=== PATIENT | male | born 2000 | race Caucasian/White ===

== ENCOUNTER 2021-10-03 19:55 | Inpatient (IN) ==
[2021-10-03 20:37] LABS: Basophils # (auto) 0.02 K/uL (0-0.2); Basophils % (auto) 0.3 %; Eosinophils % (auto) 1.7 %; Hematocrit (blood only) 43.9 % (42-52); Hemoglobin 15.6 g/dL (14.0-18.0); Immature Granulocytes # (auto) 0.01 K/uL (0.00-0.02); Immature Granulocytes % (auto) 0.2 %; Lymphocytes # (auto) 2.29 K/uL (1.2-3.4); Lymphocytes % (auto) 38.6 %; Mean Corpuscular Hemoglobin 30.8 pg (25-34); Mean Corpuscular Hgb Conc 35.5 g/dL (32-36); Mean Corpuscular Volume 86.8 fL (80-100); Mean Platelet Volume 10.2 fL (7.4-10.4); Monocytes # (auto) 0.42 K/uL (0.11-0.59); Monocytes % (auto) 7.1 %; Neutrophils % (auto) 52.1 %; Platelet Count 234 K/uL (130-400); RDW Coefficient of Variation 12.1 % (11.5-14.5); RDW Standard Deviation 38.5 fL (36.4-46.3); Red Blood Count 5.06 M/uL (4.7-6.1); White Blood Count 5.94 K/uL (4.8-10.8)
[2021-10-03 20:49] LABS: Appearance Urine Clear (Clear); Bilirubin Urine Negative (Negative); Blood Urine Negative (Negative); Color Urine Yellow; Glucose Urine UA Negative (Negative); Ketones Urine Trace (Negative); Leukocyte Esterase Urine Negative (Negative); Nitrite Urine Negative (Negative); Protein Urine Negative (Negative); Specific Gravity Urine 1.018 (1.000-1.030); Urobilinogen Urine Negative (Negative)
[2021-10-03] MEDS ORDERED: SODIUM CHLORIDE 0.9% 1000ML 1,000 ML IV ONE ×2 (20:49)
[2021-10-03] MEDS ORDERED: LORazepam 2 MG/4 ML VIAL IV STA (20:49)
[2021-10-03] MEDS ORDERED: MAGNESIUM SULFATE / D5W 1 GM/100 ML BAG IV STA (20:50)
--- NOTE | 2021-10-03 20:53 | Emergency Department Note ---
Impression & Plan Bupropion overdose, Anticholinergic drug overdose, Prolonged QT interval, Alcohol intoxication, Depression ED Provider Note Name: NOLBERTO GUERRA Age: 21 Sex: M Arrives Via: Walk-In Informant: Patient, Girlfriend ED Provider: Dontrell Quijano MD Chief Complaint: Overdose Impression: As per impressions above Medical Decision Makin-year-old male with a history of depression and worsening depressive recently who admits he was feeling quite bad this afternoon and since drinking beer did not make him feel better he attempted snorting his bupropion. He admits this led to him snorting roughly 15 to 20 tablets over a 3-hour time. Initially had no symptoms but then started becoming tremulous and slightly dizzy. After discussion with his significant other he came to the ER for further evaluation. On arrival he was tachycardic and appeared to be in an anticholinergic state. He was brought back to room B 10 where he was immediately evaluated by me. EKG reveals a prolonged QTC, significant tachycardia and ST depressions laterally. His examination is consistent with an anticholinergic state with tremors and nystagmus. Given these findings he was immediately ordered fluids, IV magnesium, IV Ativan. He did seem to improve somewhat after this though still somewhat tachycardic. Labs are remarkable for mildly intoxicated patient and positive amphetamines/MDMA in the UA which may just be related to his bupropion overdose. I did discuss the case with poison control who agrees with the work-up that had been initiated given to the patient. I discussed the case with Dr. Roberts of the [facility] hospitalist group for further management. Patient is comfortable with this plan as is his significant other. I will note that throughout the patient's stay and on evaluations he continues to maintain that this was not an attempt to harm himself but rather to get high as he was not feeling good. He repeatedly says this was not a suicide attempt and his significant other at bedside believes this was not an attempt either. Prior Medical Record and Triage/Nursing Notes reviewed by Me Additional history obtained from significant other Differentials:Overdose, toxicologic, infection, hypoglycemia, electrolyte abnormalities, cardiac sources, intracerebral event, neurologic, trauma, as well as other pathologies. Vital Signs: reviewed and remarkable for tachycardia Interventions: Normal saline 2 L IV, magnesium 1 g IV, 2 mg Ativan IV Labs:Reviewed and remarkable for no significant abnormalities EKG:Per My Interpretation: Indication Overdose: sinus Tachy 147 bpm, qtc 551. No Ectopy. No Ischemia. No previous EKG for evaluation Cardiac/Tele Monitoring: Cardiac Monitoring: An Order was placed for continuous cardiac monitoring. The monitor shows a rate of 140 with a sinus tachy rhythm. Consults:Dr. Roberts [facility] hospitalist Plan: Disposition:Hospitalization. Condition: Good History of Present Illness:31-year-old male arrives for evaluation of an overdose. Patient notes that he has been depressed for quite some time due to the of his grandmother who raised him over the fall. He also notes that school has been difficult and then the holidays made even worse. He had a meeting with his counselor today and he said that he just was feeling very d epressed after this. He wanted to feel better so he drank some beer. As the beer did not make him feel better he took some bupropion which also did not make him feel better. He looked up online how snorting bupropion can give you a high and thus he attempted to do this. Over the period of 3 hours between 1 PM and 4 PM he snorted roughly 15 to 20 tablets of bupropion 100 mg SR tablets. He stat es he initially felt all right but has now begun to feel lightheaded mildly dizzy and shaky. Girlfriend brought him to ER for evaluation. He denies any current nausea, vomiting, chest pain, shortness of breath, syncope, headache, neurologic deficits, loss of bowel or bladder control, focal weakness nor other symptoms. He denies any falls, trauma, injuries. He is adamant that this was not a suicide attempt but rather an attempt to make himself feel better. He denies any previous suicide attempts nor previous hospitalizations for depression/psychiatric illness. He denies any other medications taken with this. He denies any further alcohol since this afternoon. Patient states that he is on bupropion as an outpatient but no other medications. Patient does admit extensive anxiety and depression history in his family. He is not aware of any suicide attempts in his family. ROS: See above HPI for pertinent positives & negatives. A total of 10 systems reviewed and were otherwise negative. Past Medical History:Anxiety/depression Past Surgical History:Nasal septal surgery Family History:Grandmother had pancreatic cancer and liver failure. He believes there is coronary artery disease within the family as well. Social History:Patient is a [employer] student. He has a major in chemical engineering. He denies tobacco nor drug use. He admits occasional alcohol use and increased use throughout the holiday but does not regularly get intoxicated. Home Medications:Bupropion Allergies:No known drug allergies Vitals:Blood Pressure: 121/70, Pulse 143, RR 16, T 36.6C, O2 99% on RA Physical Exam: GENERAL: Patient is distant and tremulous appearing and in minimal distress. EYES: No scleral icterus, unremarkable pupils. ENT: Mucous membranes moist, no nasal congestion. NECK: No masses appreciated, nomeningismus, trachea is midline. RESPIRATORY: No dyspnea. Clear to auscultation and equal bilaterally. No wheeze, no rhonchi. CARDIOVASCULAR: Tachycardic.No murmurs, rubs, gallops appreciated. GASTROINTESTINAL: Abdomen soft, non-tender, no peritonitis.Bowel sounds positive.No masses appreciated. BACK: No midline tenderness, no CVA tenderness EXTREMITIES: Normal motion all extremities, no cyanosis, no edema. NEUROLOGIC: Horizontal nystagmus, tremulous. Awake, oriented. No acute motor or sensory deficits, no focal weakness, cranial nerves grossly intact. SKIN: No rash, no jaundice, no diaphoresis. PSYCH: Sad/depressed, adamant he is not suicidal GCS: 15 ED Course: Times/Reassessments: Patient appears much calmer and in no distress on repeat evaluations following above treatment. He is somewhat tachycardic though is not having any symptoms from this at this time. Critical Care: I have personally spent 35 minutes of critical care time in the direct management of this patient. Acute anticholinergic crisis following large overdose of bupropion requiring resuscitation with fluids, IV magnesium, IV Ativan. This was a life/limb threatening event. This 35 minutes is in excess of all separately billable procedures. Dontrell Quijano MD Past Med/Surg History Medical History (Updated 10/03/21 @ 23:22 by Dontrell Quijano MD) No pertinent past medical history Family History Other No pertinent family history Social History Smoking Status: Never smoker Feels Safe at Home: Yes Allergies Allergies Allergy/AdvReac Type Severity Reaction Status Date / Time No Known Allergies Allergy Verified 10/03/21 21:24 Home Meds Home Medications Medication Instructions Recorded Confirmed bupropion HCl 150 mg tablet,12 hr 150 mg PO .OD 10/03/21 10/03/21 sustained-release bupropion HCl 300 mg 24 hr tablet, 300 mg PO QAM 10/03/21 10/03/21 extended release Results & Data (ED) Vital Signs Vital Signs - 24 hr 10/03/21 19:59 10/03/21 21:07 10/03/21 21:09 Temperature 36.6 C 36.6 C Temperature Source Temporal Artery Scan Oral Pulse Rate 143 H 147 H Pulse Rate [Apical] 147 H Pulse Rhythm Regular Pulse Rhythm [Apical] Regular Pulse Strength [Apical] Normal Respiratory Rate 16 22 Respiratory Effort / Characteristics Non-Labored Spontaneous Respiratory Depth Normal Normal Respiratory Pattern Regular Tachypnea Blood Pressure 121/70 Blood Pressure [Right Arm] 133/76 Blood Pressure Mean 87 Blood Pressure Mean [Right Arm] 95 Blood Pressure Position [Right Arm] Semi-fowlers Pulse Oximetry 99 99 100 Oxygen Delivery Method Room Air Room Air Room Air Oxygen Flow Rate 0 Sepsis Recent Fever Within 48 Hours No Sepsis New/Unexplained Change in Mental Status No Sepsis Action Taken by Nursing No Action Required Laboratory Data Result diagrams: 10/03/21 20:23 10/03/21 20:23 Lab Results 10/03/21 10/03/21 10/03/21 Range/Units 20:23 20:23 20:23 WBC 5.94 (4.8-10.8) K/uL RBC 5.06 (4.7-6.1) M/uL Hgb 15.6 (14.0-18.0) g/dL Hct 43.9 (42-52) % MCV 86.8 (80-100) fL MCH 30.8 (25-34) pg MCHC 35.5 (32-36) g/dL RDW Std Deviation 38.5 (36.4-46.3) fL RDW Coeff of [place] 12.1 (11.5-14.5) % Plt Count 234 (130-400) K/uL MPV 10.2 (7.4-10.4) fL Immature Gran % (Auto) 0.2 % Neut % (Auto) 52.1 % Lymph % (Auto) 38.6 % [place] % (Auto) 7.1 % Eos % (Auto) 1.7 % Baso % (Auto) 0.3 % Neut # (Auto) 3.10 (1.4-6.5) K/uL Lymph # (Auto) 2.29 (1.2-3.4) K/uL [place] # (Auto) 0.42 (0.11-0.59) K/uL Eos # (Auto) 0.10 (0-0.5) K/uL Baso # (Auto) 0.02 (0-0.2) K/uL Immature Gran # (Auto) 0.01 (0.00-0.02) K/uL Sodium 142 (136-145) mmol/L Potassium 3.2 L (3.5-5.1) mmol/L Chloride 111 H (98-107) mmol/L Carbon Dioxide 24 (21-32) mmol/L Anion Gap 7.0 (3-11) BUN 10 (7-18) mg/dl Creatinine 1.01 (0.6-1.4) mg/dl Est Cr Clr Drug Dosing 111.9 ml/min Est GFR ( Amer) 122.7 ml/min Est GFR (Non-Af Amer) 105.8 ml/min BUN/Creatinine Ratio 10.0 (10-20) Glucose 99 (70-99) mg/dl Calcium 9.1 (8.5-10.1) mg/dl Magnesium (1.8-2.4) mg/dl Total Bilirubin 0.2 (0.2-1) mg/dl AST 20 (15-37) U/L ALT 30 (12-78) Alkaline Phosphatase 68 (45-117) U/L Total Protein 8.3 H (6.4-8.2) gm/dl Albumin 4.5 (3.4-5.0) gm/dl Globulin 3.8 (2.5-4.0) gm/dl Albumin/Globulin Ratio 1.2 (0.9-2) TSH 2.680 (0.300-4.500) uIu/ml Urine Color Urine Appearance (Clear) Urine pH (4.5-7.5) Ur Specific [place] (1.000-1.030) Urine Protein (Negative) Urine Glucose (UA) (Negative) Urine Ketones (Negative) Urine Blood (Negative) Urine Nitrite (Negative) Urine Bilirubin (Negative) Urine Urobilinogen (Negative) Ur Leukocyte Esterase (Negative) Salicylates < 1.7 L (2.8-20) mg/dl Urine Opiates Screen (Neg) Ur Methadone, Qual (Neg) Acetaminophen < 2 L (10-30) ug/ml Urine Barbiturates (Neg) Ur Phencyclidine (PCP) (Neg) U Amphetamin/Meth Scrn (Neg) MDMA (Ecstasy) Screen (Neg) U Benzodiazepines Scrn (Neg) Ur Cocaine Metabolite (Neg) U Marijuana (THC) Screen (Neg) Ethyl Alcohol mg/dL (0-3) mg/dl SARS-CoV-2, RNA, NAAT (NEGATIVE) 10/03/21 10/03/21 10/03/21 Range/Units 20:23 20:23 21:33 WBC (4.8-10.8) K/uL RBC (4.7-6.1) M/uL Hgb (14.0-18.0) g/dL Hct (42-52) % MCV (80-100) fL MCH (25-34) pg MCHC (32-36) g/dL RDW Std Deviation (36.4-46.3) fL RDW Coeff of [place] (11.5-14.5) % Plt Count (130-400) K/uL MPV (7.4-10.4) fL Immature Gran % (Auto) % Neut % (Auto) % Lymph % (Auto) % [place] % (Auto) % Eos % (Auto) % Baso % (Auto) % Neut # (Auto) (1.4-6.5) K/uL Lymph # (Auto) (1.2-3.4) K/uL [place] # (Auto) (0.11-0.59) K/uL Eos # (Auto) (0-0.5) K/uL Baso # (Auto) (0-0.2) K/uL Immature Gran # (Auto) (0.00-0.02) K/uL Sodium (136-145) mmol/L Potassium (3.5-5.1) mmol/L Chloride (98-107) mmol/L Carbon Dioxide (21-32) mmol/L Anion Gap (3-11) BUN (7-18) mg/dl Creatinine (0.6-1.4) mg/dl Est Cr Clr Drug Dosing ml/min Est GFR ( Amer) ml/min Est GFR (Non-Af Amer) ml/min BUN/Creatinine Ratio (10-20) Glucose (70-99) mg/dl Calcium (8.5-10.1) mg/dl Magnesium 2.0 (1.8-2.4) mg/dl Total Bilirubin (0.2-1) mg/dl AST (15-37) U/L ALT (12-78) Alkaline Phosphatase (45-117) U/L Total Protein (6.4-8.2) gm/dl Albumin (3.4-5.0) gm/dl Globulin (2.5-4.0) gm/dl Albumin/Globulin Ratio (0.9-2) TSH (0.300-4.500) uIu/ml Urine Color Urine Appearance (Clear) Urine pH (4.5-7.5) Ur Specific [place] (1.000-1.030) Urine Protein (Negative) Urine Glucose (UA) (Negative) Urine Ketones (Negative) Urine Blood (Negative) Urine Nitrite (Negative) Urine Bilirubin (Negative) Urine Urobilinogen (Negative) Ur Leukocyte Esterase (Negative) Salicylates (2.8-20) mg/dl Urine Opiates Screen (Neg) Ur Methadone, Qual (Neg) Acetaminophen (10-30) ug/ml Urine Barbiturates (Neg) Ur Phencyclidine (PCP) (Neg) U Amphetamin/Meth Scrn (Neg) MDMA (Ecstasy) Screen (Neg) U Benzodiazepines Scrn (Neg) Ur Cocaine Metabolite (Neg) U Marijuana (THC) Screen (Neg) Ethyl Alcohol mg/dL 111.3 H (0-3) mg/dl SARS-CoV-2, RNA, NAAT NEGATIVE (NEGATIVE) 10/03/21 10/03/21 Range/Units Unknown Unknown WBC (4.8-10.8) K/uL RBC (4.7-6.1) M/uL Hgb (14.0-18.0) g/dL Hct (42-52) % MCV (80-100) fL MCH (25-34) pg MCHC (32-36) g/dL RDW Std Deviation (36.4-46.3) fL RDW Coeff of [place] (11.5-14.5) % Plt Count (130-400) K/uL MPV (7.4-10.4) fL Immature Gran % (Auto) % Neut % (Auto) % Lymph % (Auto) % [place] % (Auto) % Eos % (Auto) % Baso % (Auto) % Neut # (Auto) (1.4-6.5) K/uL Lymph # (Auto) (1.2-3.4) K/uL [place] # (Auto) (0.11-0.59) K/uL Eos # (Auto) (0-0.5) K/uL Baso # (Auto) (0-0.2) K/uL Immature Gran # (Auto) (0.00-0.02) K/uL Sodium (136-145) mmol/L Potassium (3.5-5.1) mmol/L Chloride (98-107) mmol/L Carbon Dioxide (21-32) mmol/L Anion Gap (3-11) BUN (7-18) mg/dl Creatinine (0.6-1.4) mg/dl Est Cr Clr Drug Dosing ml/min Est GFR ( Amer) ml/min Est GFR (Non-Af Amer) ml/min BUN/Creatinine Ratio (10-20) Glucose (70-99) mg/dl Calcium (8.5-10.1) mg/dl Magnesium (1.8-2.4) mg/dl Total Bilirubin (0.2-1) mg/dl AST (15-37) U/L ALT (12-78) Alkaline Phosphatase (45-117) U/L Total Protein (6.4-8.2) gm/dl Albumin (3.4-5.0) gm/dl Globulin (2.5-4.0) gm/dl Albumin/Globulin Ratio (0.9-2) TSH (0.300-4.500) uIu/ml Urine Color Yellow Urine Appearance Clear (Clear) Urine pH 5.0 (4.5-7.5) Ur Specific [place] 1.018 (1.000-1.030) Urine Protein Negative (Negative) Urine Glucose (UA) Negative (Negative) Urine Ketones Trace H (Negative) Urine Blood Negative (Negative) Urine Nitrite Negative (Negative) Urine Bilirubin Negative (Negative) Urine Urobilinogen Negative (Negative) Ur Leukocyte Esterase Negative (Negative) Salicylates (2.8-20) mg/dl Urine Opiates Screen Neg (Neg) Ur Methadone, Qual Neg (Neg) Acetaminophen (10-30) ug/ml Urine Barbiturates Neg (Neg) Ur Phencyclidine (PCP) Neg (Neg) U Amphetamin/Meth Scrn Pos H (Neg) MDMA (Ecstasy) Screen Pos H (Neg) U Benzodiazepines Scrn Neg (Neg) Ur Cocaine Metabolite Neg (Neg) U Marijuana (THC) Screen Neg (Neg) Ethyl Alcohol mg/dL (0-3) mg/dl SARS-CoV-2, RNA, NAAT (NEGATIVE) Administered Medications Sodium Chloride (Nss 1000ml) 1,000 mls @ 200 mls/hr IV .Q5H FAUSTO Stop: 10/04/21 08:46 Last Admin: 10/03/21 23:00 Dose: 200 mls/hr Documented by: [id number] Discontinued Medications Sodium Chloride (Nss 1000ml) 1,000 mls @ 999 mls/hr IV .Q1H1M ONE Stop: 10/03/21 21:49 Last Infusion: 10/03/21 23:00 Dose: 0 mls/hr Documented by: [id number] Infusion: 10/03/21 21:38 Dose: 0 mls/hr Documented by: [id number] Admin: 10/03/21 20:56 Dose: 999 mls/hr Documented by: [id number] Sodium Chloride (Nss 1000ml) 1,000 mls @ 999 mls/hr IV .Q1H1M ONE Stop: 10/03/21 21:49 Last Admin: 10/03/21 21:39 Dose: 999 mls/hr Documented by: [id number] Lorazepam (Ativan) 2 mg in 4 mls @ 4 mls/min IV NOW STA Stop: 10/03/21 20:50 Last Admin: 10/03/21 20:58 Dose: 4 mls/min Documented by: [id number] Magnesium Sulfate/Dextrose (Magnesium Sulfate / D5w) 1 gm in 100 mls @ 100 mls/hr IV NOW STA Stop: 10/03/21 21:49 Last Infusion: 10/03/21 22:12 Dose: 0 mls/hr Documented by: [id number] Admin: 10/03/21 21:04 Dose: 100 mls/hr Documented by: [id number] Potassium Chloride (Potassium Chloride Crtab 20 Meq Tabcr) 40 meq PO NOW STA Stop: 10/03/21 22:47 Last Admin: 10/03/21 23:00 Dose: 40 meq Documented by: [id number] Discharge Plan Visit Data Chief Complaint: Overdose (Intentional) Stated Complaint: INTENTIONAL OD OF BUPROPION ED Provider: Dontrell Quijano Discharge Problem: Bupropion overdose, Anticholinergic drug overdose, Prolonged QT interval, Alcohol intoxication, Depression Forms Stand Alone Forms: [facility], Suicide Prevention Resources Prescriptions Prescriptions: No Action bupropion HCl 150 mg Tablet Sustained-Release 12 Hr 150 mg PO .OD RF: 0 bupropion HCl 300 mg Tablet Extended Release 24 Hr 300 mg PO QAM RF: 0 Referrals [facility]: [facility] [Primary Care Provider] -
[2021-10-03 20:57] LABS: Albumin Level 4.5 gm/dl (3.4-5.0); Calcium 9.1 mg/dl (8.5-10.1); Creatinine Clr Calc Pharmacy 111.9 ml/min; Est GFR (African American) 122.7 ml/min; Est GFR (Non-African American) 105.8 ml/min; Potassium 3.2 mmol/L (3.5-5.1)
[2021-10-03 21:06] LABS: Albumin Globulin Ratio 1.2 (0.9-2); Globulin 3.8 gm/dl (2.5-4.0); Thyroid Stimulating Hormone 2.68 uIu/ml (0.300-4.500); Total Protein 8.3 gm/dl (6.4-8.2)
[2021-10-03 21:13] LABS: Acetaminophen < 2 ug/ml (10-30); Salicylate < 1.7 mg/dl (2.8-20)
[2021-10-03 21:45] LABS: Benzodiazepine, Urine Neg (Neg); Cocaine, Urine Neg (Neg); MDMA (Ecstacy), Urine Pos (Neg); Methadone, Urine Neg (Neg); Opiate, Urine Neg (Neg); Phencyclidine, Urine Neg (Neg)
[2021-10-03 22:05] LABS: Bilirubin,Total 0.2 mg/dl (0.2-1)
[2021-10-03 22:14] LABS: Amphetamines+Metham, Urine Pos (Neg); Barbiturates, Urine Neg (Neg)
[2021-10-03] MEDS ORDERED: POTASSIUM CHLORIDE CRTAB 20 MEQ TABCR PO STA (22:46)
[2021-10-03] MEDS ORDERED: SODIUM CHLORIDE 0.9% 1000ML 1,000 ML IV SCH (22:47)
--- NOTE | 2021-10-03 23:15 | History & Physical Report ---
Date of Service October 03, 2021 Assessment & Plan (1) Bupropion overdose: Plan: 21yo Male here with bupropion overdose via crushed and snorting pills. PMH Depression. ()Bupropion Overdose -Patient snorted 15-20 pills bupropion, developed body twitching, weakness/foundation coordinator rdination issues -tachycardic 150's, 100% on RA -Contacted poison control, recommend IVF magnesium and ativan -EKG tachycardia, possible prolonged QT interval -patient received 1mg magnesium and 2mg ativan, began hallucinating, no change in heart rate -placed on seizure precautions -UDS + amphetamine likely due to bupropion, + for alcohol -K low at 3.2 -cbc unremarkable, TSH wnl, trop neg -started on AWSS protocol -received 2 unit K rider -trend cbc, bmp ()Alcohol Intoxication -patient drinks once every other week, 3-4 drinks per time -drank 40oz beer before admit, alcohol level 111.3 -started AWSS protocol ()Depression -hold bupropion for now given his acute intoxication FENa: regular Code Status: full DVT PPX: lovenox Dispo: PCU/tele [facility] Do PGY 1, FCM (2) Depression: (3) Alcohol intoxication: History of Present Illness Chief Complaint: Bupropion Overdose Primary Care Provider: [facility] [place] 21yo Male here with bupropion overdose via crushed and snorting pills. PMH Depression. Patient states he had a difficult session with his therapist, drank 40oz 9% beer, took 300mg Bupropion orally, did not feet better. Patient states he got the idea from watching 'Breaking Bad', was feeling depressed wanted to feel better, found he could snort bupropion online, crushed and snorted 2 pills at a time until he reached 15-20 pills total over 2.5hrs,states it did improve his mood. He then began feeling tachycardic, weakness, twitching, his girlfriend found him and brought him to the hospital. Patient received IVF, 1mg Magnesium, 2mf Ativan in ER, began hallucinating animals and shapes, is aware he is hallucinating. Patient insists he was not suicidal, only wanted to feel better, states he is currently embarrassed to be in the hospital. States this is the first time he has tried to abuse drugs. Patient's girlfriend gave most of history. Patient has had a difficult year, grandmother February, he damaged his shoulder and couldn't participate in [employer], college started in person classes difficult, his great aunt august. He has been attending therapy regularly, started on wellbutrin states it did work at first, takes his medication regularly. He has limited social support, has social anxiety has not met with [employer] friends has not made new friends in college, lives 2+hr away from old friends, has a girlfriend and a cat. Patient denies smoking, drinks once every other week 3-4 drinks per ses renato, denies illicit substance use. He complains of left sided chest pressure. He has difficulty sitting upright, needs to use the bed rail, states he feels weak. Diaphoretic. Allergies Allergy/AdvReac Type Severity Reaction Status Date / Time No Known Allergies Allergy Verified 10/03/21 21:24 Home Medications Medication Instructions Recorded Confirmed Type bupropion HCl 150 mg tablet,12 hr 150 mg PO .OD 10/03/21 10/03/21 History sustained-release bupropion HCl 300 mg 24 hr tablet, 300 mg PO QAM 10/03/21 10/03/21 History extended release Past Med/Surg History Medical History (Updated 10/04/21 @ 11:24 by Louise Hunt MD) No pertinent past medical history Family History Other No pertinent family history Social History Smoking Status: Never smoker Preferred Language: Japanese Communication Ability: Effective Disk Sharpener Required: No Feels Safe at Home: Yes Review of Systems Review of Systems: Left chest pressure Negative fever chills Negative headache dizziness Negative chest pain palpitations SOB Negative nausea vomitting diarrhea constipation Negative numbness tingling rash swelling Physical Exam Constitutional: well developed, well nourished, cooperative and comfortable Eyes: PERRL, conjunctivae normal, anicteric sclerae pupils 3-4mm diameter ENMT: Throat: uvula midline Neck: trachea midline, no thyromegaly Respiratory: normal respiratory effort, lungs clear to auscultation Cardiovascular: Rate/Rhythm: regular rhythm and + tachycardic Heart Sounds: normal S1 and normal S2; no abnormal opening sounds, no click and no gallop Extremities: no calf tenderness and no edema Chest (Breasts): Chest: normal inspection of chest Gastrointestinal (Abdomen): normal bowel sounds, soft, nontender, no hepatosplenomegaly Musculoskeletal: no cyanosis or clubbing, extremities motor strength 5/5 Skin: no rashes, warm and dry Neurologic: normal touch/pain/proprioception, CN's II-XI intact bilaterally, moves all extremities and awake Results & Data Results & Data ([facility]) Vital Signs (Past 12 Hours) Vital Signs Temp Pulse Pulse Resp BP BP Pulse Ox 10/03/21 21:09 36.6 C 147 H 22 133/76 100 10/03/21 21:07 147 H 21 99 10/03/21 19:59 36.6 C 143 H 16 121/70 99 Laboratory Results 10/03/21 10/03/21 10/03/21 Range/Units Unknown Unknown Unknown WBC (4.8-10.8) K/uL RBC (4.7-6.1) M/uL Hgb (14.0-18.0) g/dL Hct (42-52) % MCV (80-100) fL MCH (25-34) pg MCHC (32-36) g/dL RDW Std Deviation (36.4-46.3) fL RDW Coeff of Truong (11.5-14.5) % Plt Count (130-400) K/uL MPV (7.4-10.4) fL Immature Gran % (Auto) % Neut % (Auto) % Lymph % (Auto) % Louisa % (Auto) % Eos % (Auto) % Baso % (Auto) % Neut # (Auto) (1.4-6.5) K/uL Lymph # (Auto) (1.2-3.4) K/uL Louisa # (Auto) (0.11-0.59) K/uL Eos # (Auto) (0-0.5) K/uL Baso # (Auto) (0-0.2) K/uL Immature Gran # (Auto) (0.00-0.02) K/uL Sodium (136-145) mmol/L Potassium (3.5-5.1) mmol/L Chloride (98-107) mmol/L Carbon Dioxide (21-32) mmol/L Anion Gap (3-11) BUN (7-18) mg/dl Creatinine (0.6-1.4) mg/dl Est Cr Clr Drug Dosing ml/min Est GFR ( Amer) ml/min Est GFR (Non-Af Amer) ml/min BUN/Creatinine Ratio (10-20) Glucose (70-99) mg/dl Calcium (8.5-10.1) mg/dl Magnesium (1.8-2.4) mg/dl Total Bilirubin (0.2-1) mg/dl AST (15-37) U/L ALT (12-78) Alkaline Phosphatase (45-117) U/L Troponin I Total Protein (6.4-8.2) gm/dl Albumin (3.4-5.0) gm/dl Globulin (2.5-4.0) gm/dl Albumin/Globulin Ratio (0.9-2) TSH (0.300-4.500) uIu/ml Urine Color Yellow Urine Appearance Clear (Clear) Urine pH 5.0 (4.5-7.5) Ur Specific Guy 1.018 (1.000-1.030) Urine Protein Negative (Negative) Urine Glucose (UA) Negative (Negative) Urine Ketones Trace H (Negative) Urine Blood Negative (Negative) Urine Nitrite Negative (Negative) Urine Bilirubin Negative (Negative) Urine Urobilinogen Negative (Negative) Ur Leukocyte Esterase Negative (Negative) Salicylates (2.8-20) mg/dl Urine Opiates Screen Neg (Neg) Ur Methadone, Qual Neg (Neg) Acetaminophen (10-30) ug/ml Urine Barbiturates Neg (Neg) Ur Phencyclidine (PCP) Neg (Neg) U Amphetamines Confirm Pending U Amphetamin/Meth Scrn Pos H (Neg) U Methamphetamin Confrm Pending Urine MDEA Pending MDMA (Ecstasy) Screen Pos H (Neg) MDMA Pending Urine MDMA Pending U Benzodiazepines Scrn Neg (Neg) Ur Cocaine Metabolite Neg (Neg) U Marijuana (THC) Screen Neg (Neg) Drug Screen Comment Pending Ethyl Alcohol mg/dL (0-3) mg/dl SARS-CoV-2, RNA, NAAT (NEGATIVE) 10/03/21 10/03/21 10/03/21 Range/Units 22:58 21:33 20:23 WBC (4.8-10.8) K/uL RBC (4.7-6.1) M/uL Hgb (14.0-18.0) g/dL Hct (42-52) % MCV (80-100) fL MCH (25-34) pg MCHC (32-36) g/dL RDW Std Deviation (36.4-46.3) fL RDW Coeff of Truong (11.5-14.5) % Plt Count (130-400) K/uL MPV (7.4-10.4) fL Immature Gran % (Auto) % Neut % (Auto) % Lymph % (Auto) % Louisa % (Auto) % Eos % (Auto) % Baso % (Auto) % Neut # (Auto) (1.4-6.5) K/uL Lymph # (Auto) (1.2-3.4) K/uL Louisa # (Auto) (0.11-0.59) K/uL Eos # (Auto) (0-0.5) K/uL Baso # (Auto) (0-0.2) K/uL Immature Gran # (Auto) (0.00-0.02) K/uL Sodium (136-145) mmol/L Potassium (3.5-5.1) mmol/L Chloride (98-107) mmol/L Carbon Dioxide (21-32) mmol/L Anion Gap (3-11) BUN (7-18) mg/dl Creatinine (0.6-1.4) mg/dl Est Cr Clr Drug Dosing ml/min Est GFR ( Amer) ml/min Est GFR (Non-Af Amer) ml/min BUN/Creatinine Ratio (10-20) Glucose (70-99) mg/dl Calcium (8.5-10.1) mg/dl Magnesium 2.0 (1.8-2.4) mg/dl Total Bilirubin (0.2-1) mg/dl AST (15-37) U/L ALT (12-78) Alkaline Phosphatase (45-117) U/L Troponin I Pending Total Protein (6.4-8.2) gm/dl Albumin (3.4-5.0) gm/dl Globulin (2.5-4.0) gm/dl Albumin/Globulin Ratio (0.9-2) TSH (0.300-4.500) uIu/ml Urine Color Urine Appearance (Clear) Urine pH (4.5-7.5) Ur Specific Guy (1.000-1.030) Urine Protein (Negative) Urine Glucose (UA) (Negative) Urine Ketones (Negative) Urine Blood (Negative) Urine Nitrite (Negative) Urine Bilirubin (Negative) Urine Urobilinogen (Negative) Ur Leukocyte Esterase (Negative) Salicylates (2.8-20) mg/dl Urine Opiates Screen (Neg) Ur Methadone, Qual (Neg) Acetaminophen (10-30) ug/ml Urine Barbiturates (Neg) Ur Phencyclidine (PCP) (Neg) U Amphetamines Confirm U Amphetamin/Meth Scrn (Neg) U Methamphetamin Confrm Urine MDEA MDMA (Ecstasy) Screen (Neg) MDMA Urine MDMA U Benzodiazepines Scrn (Neg) Ur Cocaine Metabolite (Neg) U Marijuana (THC) Screen (Neg) Drug Screen Comment Ethyl Alcohol mg/dL (0-3) mg/dl SARS-CoV-2, RNA, NAAT NEGATIVE (NEGATIVE) 10/03/21 10/03/21 10/03/21 Range/Units 20:23 20:23 20:23 WBC (4.8-10.8) K/uL RBC (4.7-6.1) M/uL Hgb (14.0-18.0) g/dL Hct (42-52) % MCV (80-100) fL MCH (25-34) pg MCHC (32-36) g/dL RDW Std Deviation (36.4-46.3) fL RDW Coeff of Truong (11.5-14.5) % Plt Count (130-400) K/uL MPV (7.4-10.4) fL Immature Gran % (Auto) % Neut % (Auto) % Lymph % (Auto) % Louisa % (Auto) % Eos % (Auto) % Baso % (Auto) % Neut # (Auto) (1.4-6.5) K/uL Lymph # (Auto) (1.2-3.4) K/uL Louisa # (Auto) (0.11-0.59) K/uL Eos # (Auto) (0-0.5) K/uL Baso # (Auto) (0-0.2) K/uL Immature Gran # (Auto) (0.00-0.02) K/uL Sodium 142 (136-145) mmol/L Potassium 3.2 L (3.5-5.1) mmol/L Chloride 111 H (98-107) mmol/L Carbon Dioxide 24 (21-32) mmol/L Anion Gap 7.0 (3-11) BUN 10 (7-18) mg/dl Creatinine 1.01 (0.6-1.4) mg/dl Est Cr Clr Drug Dosing 111.9 ml/min Est GFR ( Amer) 122.7 ml/min Est GFR (Non-Af Amer) 105.8 ml/min BUN/Creatinine Ratio 10.0 (10-20) Glucose 99 (70-99) mg/dl Calcium 9.1 (8.5-10.1) mg/dl Magnesium (1.8-2.4) mg/dl Total Bilirubin 0.2 (0.2-1) mg/dl AST 20 (15-37) U/L ALT 30 (12-78) Alkaline Phosphatase 68 (45-117) U/L Troponin I Total Protein 8.3 H (6.4-8.2) gm/dl Albumin 4.5 (3.4-5.0) gm/dl Globulin 3.8 (2.5-4.0) gm/dl Albumin/Globulin Ratio 1.2 (0.9-2) TSH 2.680 (0.300-4.500) uIu/ml Urine Color Urine Appearance (Clear) Urine pH (4.5-7.5) Ur Specific Guy (1.000-1.030) Urine Protein (Negative) Urine Glucose (UA) (Negative) Urine Ketones (Negative) Urine Blood (Negative) Urine Nitrite (Negative) Urine Bilirubin (Negative) Urine Urobilinogen (Negative) Ur Leukocyte Esterase (Negative) Salicylates < 1.7 L (2.8-20) mg/dl Urine Opiates Screen (Neg) Ur Methadone, Qual (Neg) Acetaminophen < 2 L (10-30) ug/ml Urine Barbiturates (Neg) Ur Phencyclidine (PCP) (Neg) U Amphetamines Confirm U Amphetamin/Meth Scrn (Neg) U Methamphetamin Confrm Urine MDEA MDMA (Ecstasy) Screen (Neg) MDMA Urine MDMA U Benzodiazepines Scrn (Neg) Ur Cocaine Metabolite (Neg) U Marijuana (THC) Screen (Neg) Drug Screen Comment Ethyl Alcohol mg/dL 111.3 H (0-3) mg/dl SARS-CoV-2, RNA, NAAT (NEGATIVE) 10/03/21 Range/Units 20:23 WBC 5.94 (4.8-10.8) K/uL RBC 5.06 (4.7-6.1) M/uL Hgb 15.6 (14.0-18.0) g/dL Hct 43.9 (42-52) % MCV 86.8 (80-100) fL MCH 30.8 (25-34) pg MCHC 35.5 (32-36) g/dL RDW Std Deviation 38.5 (36.4-46.3) fL RDW Coeff of Truong 12.1 (11.5-14.5) % Plt Count 234 (130-400) K/uL MPV 10.2 (7.4-10.4) fL Immature Gran % (Auto) 0.2 % Neut % (Auto) 52.1 % Lymph % (Auto) 38.6 % Louisa % (Auto) 7.1 % Eos % (Auto) 1.7 % Baso % (Auto) 0.3 % Neut # (Auto) 3.10 (1.4-6.5) K/uL Lymph # (Auto) 2.29 (1.2-3.4) K/uL Louisa # (Auto) 0.42 (0.11-0.59) K/uL Eos # (Auto) 0.10 (0-0.5) K/uL Baso # (Auto) 0.02 (0-0.2) K/uL Immature Gran # (Auto) 0.01 (0.00-0.02) K/uL Sodium (136-145) mmol/L Potassium (3.5-5.1) mmol/L Chloride (98-107) mmol/L Carbon Dioxide (21-32) mmol/L Anion Gap (3-11) BUN (7-18) mg/dl Creatinine (0.6-1.4) mg/dl Est Cr Clr Drug Dosing ml/min Est GFR ( Amer) ml/min Est GFR (Non-Af Amer) ml/min BUN/Creatinine Ratio (10-20) Glucose (70-99) mg/dl Calcium (8.5-10.1) mg/dl Magnesium (1.8-2.4) mg/dl Total Bilirubin (0.2-1) mg/dl AST (15-37) U/L ALT (12-78) Alkaline Phosphatase (45-117) U/L Troponin I Total Protein (6.4-8.2) gm/dl Albumin (3.4-5.0) gm/dl Globulin (2.5-4.0) gm/dl Albumin/Globulin Ratio (0.9-2) TSH (0.300-4.500) uIu/ml Urine Color Urine Appearance (Clear) Urine pH (4.5-7.5) Ur Specific Guy (1.000-1.030) Urine Protein (Negative) Urine Glucose (UA) (Negative) Urine Ketones (Negative) Urine Blood (Negative) Urine Nitrite (Negative) Urine Bilirubin (Negative) Urine Urobilinogen (Negative) Ur Leukocyte Esterase (Negative) Salicylates (2.8-20) mg/dl Urine Opiates Screen (Neg) Ur Methadone, Qual (Neg) Acetaminophen (10-30) ug/ml Urine Barbiturates (Neg) Ur Phencyclidine (PCP) (Neg) U Amphetamines Confirm U Amphetamin/Meth Scrn (Neg) U Methamphetamin Confrm Urine MDEA MDMA (Ecstasy) Screen (Neg) MDMA Urine MDMA U Benzodiazepines Scrn (Neg) Ur Cocaine Metabolite (Neg) U Marijuana (THC) Screen (Neg) Drug Screen Comment Ethyl Alcohol mg/dL (0-3) mg/dl SARS-CoV-2, RNA, NAAT (NEGATIVE) Medications Administered Current Inpatient Medications Sodium Chloride (Nss 1000ml) 1,000 mls @ 200 mls/hr IV .Q5H FAUSTO Stop: 10/04/21 08:46 Last Admin: 10/03/21 23:00 Dose: 200 mls/hr Documented by: Potassium Chloride (K Irineo / Wtr) 10 meq in 100 mls @ 100 mls/hr IV Q1H FAUSTO; Protocol Stop: 10/04/21 01:29 Code Status & VTE Plan VTE Prophylaxis Plan VTE Prophylaxis will be ordered: Yes Supervising Physician Co-Signing Physician Notes Attending addendum: I have physically seen this patient, have supervised the medical residents activities, and agree with the H&P unless as otherwise noted. Assessment and Plan: Bupropion overdose/methamphetamine positive screening/alcohol intoxication- Telemetry mission IV magnesium and IV Ativan per recommendation poison control Long QT interval noted Hallucinations improved after ministration 2 mg of Ativan IV AWSS protocol Seizure precautions Optimize potassium with oral and IV supplementation Remaining orders and notations as noted Resident Activity Tracking Resident Involvement: Resident Care Provided Care Provided: Adult Hospital Medicine (1) Bupropion overdose Encounter type: initial encounter Injury intent: undetermined intent Qualified Code(s): T43.294A - Poisoning by other antidepressants, undetermined, initial encounter (2) Alcohol intoxication Complication of substance-induced condition: uncomplicated Qualified Code(s): F10.920 - Alcohol use, unspecified with intoxication, uncomplicated (3) Depression Active/Remission status: currently active Depression Type: major depressive disorder Major depression episode severity: severe Major depression recurrence: recurrent Psychotic features: without psychotic features Qualified Code(s): F33.2 - Major depressive disorder, recurrent severe without psychotic features
[2021-10-03] MEDS: POTASSIUM CHLORIDE / WTR 10 MEQ/100 ML PLCT IV SCH (23:45)
[2021-10-04] MEDS ORDERED: POLYETHYLENE (MIRALAX) 17 GM PACK PO PRN (01:21)
[2021-10-04] MEDS ORDERED: ATIVAN IV ALCOHOL WITHDRAWL IV PRN (01:21)
[2021-10-04] MEDS ORDERED: LORazepam 2 MG/4 ML VIAL IV PRN (01:21)
[2021-10-04] MEDS ORDERED: LORazepam 1 MG/2 ML VIAL IV PRN (01:21)
[2021-10-04] MEDS ORDERED: LORazepam 3 MG/6 ML VIAL IV PRN (01:21)
[2021-10-04] MEDS ORDERED: ACETAMINOPHEN 325 MG TAB PO PRN (01:21)
[2021-10-04] MEDS: POTASSIUM CHLORIDE / WTR 10 MEQ/100 ML PLCT IV SCH ×4 (01:22→11:52)
[2021-10-04] MEDS: THIAMINE HCL 100 MG TAB PO SCH ×2 (02:19→12:59)
[2021-10-04] MEDS: FOLIC ACID 1 MG TAB PO SCH ×2 (02:19→12:57)
[2021-10-04] MEDS ORDERED: dilTIAZem HCl 5 MG/ML 5 ML VIAL IV STA ×4 (03:13→05:29)
[2021-10-04 04:10] LABS: Basophils # (auto) 0.01 K/uL (0-0.2); Basophils % (auto) 0.1 %; Eosinophils # (auto) 0.02 K/uL (0-0.5); Eosinophils % (auto) 0.2 %; Hematocrit (blood only) 37.3 % (42-52); Hemoglobin 13.3 g/dL (14.0-18.0); Immature Granulocytes # (auto) 0.02 K/uL (0.00-0.02); Immature Granulocytes % (auto) 0.2 %; Lymphocytes # (auto) 0.93 K/uL (1.2-3.4); Mean Corpuscular Hemoglobin 30.9 pg (25-34); Mean Corpuscular Hgb Conc 35.7 g/dL (32-36); Mean Corpuscular Volume 86.7 fL (80-100); Mean Platelet Volume 10.6 fL (7.4-10.4); Monocytes # (auto) 0.67 K/uL (0.11-0.59); Monocytes % (auto) 7.2 %; Neutrophils # (auto) 7.64 K/uL (1.4-6.5); Neutrophils % (auto) 82.3 %; Platelet Count 190 K/uL (130-400); RDW Coefficient of Variation 12.1 % (11.5-14.5); RDW Standard Deviation 38.5 fL (36.4-46.3); White Blood Count 9.29 K/uL (4.8-10.8)
[2021-10-04] MEDS: LACTATED RINGER'S 1,000 ML IV SCH ×2 (04:26→10:01)
[2021-10-04 04:35] LABS: BUN Creatinine Ratio 7.2 (10-20); Blood Urea Nitrogen 6 mg/dl (7-18); Calcium 8.2 mg/dl (8.5-10.1); Carbon Dioxide 22 mmol/L (21-32); Chloride 111 mmol/L (98-107); Creatinine Clr Calc Pharmacy 148.2 ml/min; Est GFR (African American) 145.1 ml/min; Est GFR (Non-African American) 125.2 ml/min; Glucose 111 mg/dl (70-99); Potassium 3.8 mmol/L (3.5-5.1); Sodium 140 mmol/L (136-145); Troponin I < 0.015 ng/ml (0-0.045)
[2021-10-04] MEDS ORDERED: POTASSIUM CHLORIDE / WTR 10 MEQ/100 ML PLCT IV STA (05:26)
[2021-10-04] MEDS ORDERED: MAGNESIUM SULFATE / D5W 1 GM/100 ML BAG IV ONE (05:27)
[2021-10-04] MEDS ORDERED: LORazepam 1 MG/2 ML VIAL IV STA (05:28)
[2021-10-04] MEDS ORDERED: HALOPERIDOL LACTATE 5 MG/ML 1 ML VIAL ONE (05:56)
[2021-10-04] MEDS ORDERED: LORazepam 2 MG/ML VIAL (IM USE) IM STA ×2 (06:03→06:12)
[2021-10-04] MEDS ORDERED: LORazepam 2 MG/4 ML VIAL IV STA (06:07)
[2021-10-04] MEDS ORDERED: HALOPERIDOL LACTATE 5 MG/ML 1 ML VIAL IM STA (06:12)
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
[2021-10-04] MEDS: ENOXAPARIN INJ 40 MG/0.4 ML SYR SQ SCH (08:55)
[2021-10-04] MEDS: MAGNESIUM SULFATE / D5W 1 GM/100 ML BAG IV SCH ×2 (10:04→11:38)
--- NOTE | 2021-10-04 11:37 | Psychiatric Consultation ---
Date of Consultation October 04, 2021 Impression / Recommendations Impression 21 yo man with history of depression and overdose of bupropion via inhalation as well as alcohol ingestion now presenting with acute hyperactive delirium suspected from high dopaminergic ingestion of bupropion as well as anticholinergic effects. Alcohol withdrawal could be contributing to symptoms but less likely given intermittent use pattern described to ED provider yesterday but agree with continuing AWSS. If no longer scoring on AWSS and once poison control agrees attempt to limit ativan use as this can further contribute to delirium. Given elevated QTc will try to limit haldol unless he becomes agitated again. Recommend melatonin to help with delirium. Given seriousness of ingestion as delirium clears it will important to fully assess for any concerns related to harm to self. Currently he has been denying SI but he also presented following acute ingestion already showing early signs of altered mental status. For now he does not have decision making capacity to leave AMA given acute delirium. (1) Depression: Active/Remission status: currently active Depression Type: major depressive disorder Major depression episode severity: severe Major depression recurrence: recurrent Psychotic features: without psychotic features Qualified Code(s): F33.2 - Major depressive disorder, recurrent severe without psychotic features (2) Drug-induced encephalopathy: (3) Bupropion overdose: Encounter type: initial encounter Injury intent: undetermined intent Qualified Code(s): T43.294A - Poisoning by other antidepressants, undetermined, initial encounter (4) Prolonged QT interval: (5) Anticholinergic drug overdose: Encounter type: initial encounter Injury intent: undetermined intent Qualified Code(s): T44.3X4A - Poisoning by other parasympatholytics [anticholinergics and antimuscarinics] and spasmolytics, undetermined, initial encounter -Consider melatonin 3mg qhs -If agitation re-emerges may need 1-on-1, for now not deemed necessary -Continue with delirium prevention measures: raising blinds during the day, closing at night, frequent re-orientation, contact with family/friends, explaining procedures/nursing care measures prior to physical contact, correct any hearing and visual impairments -AWSS -Hold bupropion in setting of overdose -For behavioral emergency: haldol 5 mg IM x1 (DO NOT exceed 20mg per 24 hours, check EKG if additional IM dose required). -He does not have decision making capacity to leave AMA, will need psychiatric assessment once delirium resolves to ensure he is safe for discharge once medically stabilized Psych History Identifying Data 21 yo man with history of depression admitted medically following overdose of bupropion. Psychiatry was consulted after he demonstrated aggressive behaviors and AMS this morning. Chief Complaint "It's February, it's September". History of Present Illness Aurelio presented to the ED with his girlfriend after reportedly snorting 15-20 pills of bupropion as well as ingesting prescribed dose of 300mg po and also consuming alcohol (about 40oz 9% beer) following a difficult session with his therapist and in the context of depressed mood in the setting of recent stressors including grieving the deaths of relatives, shoulder injury and academ ic stress. He reportedly found by his girlfriend following the ingestion and she brought him to the ED. Both Aurelio and his girlfriend denied that the ingestion was a suicide attempt but she was not present at the time of ingestion and he was starting to demonstrate symptoms from the overdose when providing history on arrival to the ED. He has consistently been denying any thoughts of suicide. This morning, while being treated for the ingestion, he became abruptly aggressive toward his mother and was hallucinating and demonstrating acute confusion. He received haldol 10mg IM and ativan 2mg IM. By mid-morning he remains tired from the haldol but is no longer in soft restraints and rouses briefly and is oriented to place, date, city though continues to have some confusion and word finding difficulty (initially answers state of [place] to question about city and struggles to find word for [place]). His girlfriend and father who are at bedside provide some further history. His girlfriend notes that last night he was having hallucinations of spiders crawling on him and seeing "little warriors" on the ceiling. He also saw a dog on his girlfriend's face and told her he was dreaming about being in battles. Further assessment limited by his level of sedation. Past Psychiatric History Previous Psych History: depression Outpatient Services: outpatient therapy History of Previous Suicide Attempt: No Allergies Allergy/AdvReac Type Severity Reaction Status Date / Time No Known Allergies Allergy Verified 10/03/21 21:24 Home Medications Medication Instructions Recorded Confirmed Type bupropion HCl 150 mg tablet,12 hr 150 mg PO .OD 10/03/21 10/03/21 History sustained-release bupropion HCl 300 mg 24 hr tablet, 300 mg PO QAM 10/03/21 10/03/21 History extended release Personal History Living Arrangements: Apartment Highest Grade Completed: Some College (current [employer] student) Employment Status: Student Patient History Medical History (Updated 10/04/21 @ 11:24 by Louise Hunt MD) No pertinent past medical history Family History Other No pertinent family history Social History Smoking Status: Never smoker Preferred Language: Nicaraguan Communication Ability: Effective Process Control Specialist Required: No Feels Safe at Home: Yes Physical Exam Psychiatric: Orientation: oriented x 3 Apperance: appropriately dressed Eye Contact: + poor eye contact Motor Behavior: no abnormal motor movements Speech: + abnormal rate/rhythm/volume of speech (soft, brief) Affect: + constricted affect Thought Process: + concrete thought process Thought Content: reality based without delusions Suicidal Thoughts: denies suicidal thoughts Homicidal Thoughts: denies homicidal thoughts Hallucinations: + auditory hallucinations, + visual hallucinations and + tactile hallucinations Cognition: + recent memory not intact, + attention not intact and + language not intact Insight: + severely impaired insight Judgement: + severely impaired judgement Vital Signs (Past 24 Hours): Last Vital Signs Temp 36.6 C 10/03/21 21:09 Pulse 132 H 10/04/21 10:16 Resp 20 10/04/21 10:16 BP 128/64 10/04/21 10:16 Pulse Ox 100 10/04/21 10:16 Review of Systems Unobtainable due to reduced consciousness Results & Data ([facility]) Laboratory Results EKG QTc: 483 ms UDS positive for alcohol, amphetamine/meth, MDMA Medications Administered Enoxaparin Sodium (Enoxaparin Inj 40 Mg/0.4 Ml Syr) 40 mg SQ Q24H [facility]O Stop: 11/03/21 08:59 Last Admin: 10/04/21 08:55 Dose: 40 mg Documented by: [id number] Folic Acid (Folic Acid 1 Mg Tab) 1 mg PO QAM [facility] Stop: 11/03/21 01:20 Last Admin: 10/04/21 02:19 Dose: 1 mg Documented by: [id number] Lorazepam (Ativan) 1 mg in 2 mls @ 2 mls/min IV UD PRN; Protocol PRN Reason: EtOH Withdrawl AWSS Score 6,7 Stop: 11/03/21 01:20 Last Admin: 10/04/21 04:14 Dose: 2 mls/min Documented by: [id number] Lorazepam (Ativan) 2 mg in 4 mls @ 4 mls/min IV UD PRN; Protocol PRN Reason: EtOH Withdrawl AWSS Score 8,9 Stop: 11/03/21 01:20 Last Admin: 10/04/21 01:54 Dose: 4 mls/min Documented by: [id number] Lactated Ringer's (Lr) 1,000 mls @ 200 mls/hr IV .Q5H [facility] Stop: 10/04/21 13:59 Last Admin: 10/04/21 10:01 Dose: 200 mls/hr Documented by: [id number] Infusion: 10/04/21 10:00 Dose: 0 mls/hr Documented by: [id number] Admin: 10/04/21 04:26 Dose: 200 mls/hr Documented by: [id number] Magnesium Sulfate/Dextrose (Magnesium Sulfate / D5w) 1 gm in 100 mls @ 50 mls/hr IV Q2H [facility] Stop: 10/04/21 13:29 Last Admin: 10/04/21 10:04 Dose: 50 mls/hr Documented by: [id number] Thiamine HCl (Thiamine Hcl 100 Mg Tab) 100 mg PO QAM [facility] Stop: 11/03/21 01:20 Last Admin: 10/04/21 02:19 Dose: 100 mg Documented by: [id number] Coding Level of Care Code 20676 Inpt Consult Level 3 Diagnoses Depression F33.2 Active/Remission status: currently active Depression Type: major depressive disorder Major depression episode severity: severe Major depression recurrence: recurrent Psychotic features: without psychotic features Drug-induced encephalopathy G92.8 Bupropion overdose T43.294A Encounter type: initial encounter Injury intent: undetermined intent Prolonged QT interval R94.31 Anticholinergic drug overdose T44.3X4A Encounter type: initial encounter Injury intent: undetermined intent
--- NOTE | 2021-10-04 12:19 | Billing Data ---
Date of Service October 04, 2021 Coding Level of Care Code 05703 Subseq Hosp Care Lvl 3
[2021-10-04] MEDS: MAGNESIUM OXIDE 400 MG TAB PO SCH (12:58)
--- NOTE | 2021-10-04 13:59 | Electrocardiogram Report ---
Test Reason : Blood Pressure : / mmHG Vent. Rate : 144 BPM Atrial Rate : 144 BPM P-R Int : 112 ms QRS Dur : 106 ms QT Int : 300 ms P-R-T Axes : 067 077 056 degrees QTc Int : 465 ms Poor data quality, interpretation may be adversely affected Sinus tachycardia Incomplete right bundle branch block Possible Septal infarct , age undetermined Abnormal ECG No previous ECGs available Confirmed by Omar Hines ([id number]) on 10/04/2021 1:59:18 PM Referred By: REFERRED SELF Confirmed By:Omar Hines
[2021-10-04 15:53] LABS: Potassium 3.5 mmol/L (3.5-5.1)
[2021-10-04 15:54] LABS: Magnesium 2.5 mg/dl (1.8-2.4)
--- NOTE | 2021-10-04 21:02 | Billing Data ---
Date of Service October 04, 2021 Coding Level of Care Code 46368 Initial Inpt Care Lvl 3
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
[2021-10-05 08:56] LABS: Basophils # (auto) 0.02 K/uL (0-0.2); Basophils % (auto) 0.4 %; Eosinophils # (auto) 0.11 K/uL (0-0.5); Eosinophils % (auto) 2.2 %; Hematocrit (blood only) 38.2 % (42-52); Hemoglobin 13.3 g/dL (14.0-18.0); Lymphocytes # (auto) 1.02 K/uL (1.2-3.4); Mean Corpuscular Hemoglobin 30.9 pg (25-34); Mean Corpuscular Hgb Conc 34.8 g/dL (32-36); Mean Corpuscular Volume 88.8 fL (80-100); Mean Platelet Volume 10.3 fL (7.4-10.4); Monocytes % (auto) 9.8 %; Neutrophils # (auto) 3.44 K/uL (1.4-6.5); Neutrophils % (auto) 67.6 %; Platelet Count 168 K/uL (130-400); RDW Coefficient of Variation 12.3 % (11.5-14.5); RDW Standard Deviation 39.7 fL (36.4-46.3); White Blood Count 5.09 K/uL (4.8-10.8)
[2021-10-05 09:18] LABS: BUN Creatinine Ratio 4.5 (10-20); Est GFR (African American) 128.8 ml/min; Est GFR (Non-African American) 111.1 ml/min; Magnesium 2.1 mg/dl (1.8-2.4)
[2021-10-05] MEDS: THIAMINE HCL 100 MG TAB PO SCH (09:22)
[2021-10-05] MEDS: MAGNESIUM OXIDE 400 MG TAB PO SCH (09:22)
[2021-10-05] MEDS: ENOXAPARIN INJ 40 MG/0.4 ML SYR SQ SCH (09:22)
[2021-10-05] MEDS: FOLIC ACID 1 MG TAB PO SCH (09:22)
--- NOTE | 2021-10-05 09:23 | Psychiatric Progress Note ---
Date of Service October 05, 2021 Impression / Recommendations Impression 21 yo man with history of depression and overdose of bupropion via inhalation as well as alcohol ingestion. Delirium has resolved. Acute risk of harm to self is deemed to be low given denial of SI, his plan to avoid drinking any alcohol after discharge, outpatient providers, future-oriented, good supports, many strong reasons to live, no access to guns and no prior attempts. He is not interested in voluntary psychiatric inpt treatment and does not meet 302 criteria. He has a follow-up apt scheduled with his therapist and agrees to follow-up with [facility] for further discussion regarding medications for his mood. He actively participated in discussion of crisis resources and was provided with information about this should he need it in the future. (1) Depression: (2) Drug-induced encephalopathy: (3) Bupropion overdose: (4) Prolonged QT interval: (5) Anticholinergic drug overdose: -Safe for discharge from a psychiatric standpoint, he is now felt to have decis ion making capacity to leave AMA -Discontinue bupropion -Aurelio can discuss potential medication options for mood with his provider at [facility] after discharge, discussed briefly options including restarting bupropion vs SSRI trial (would consider sertraline or escitalopram which are likely to be more beneficial for anxiety than bupropion monotherapy) -he has therapy follow-up scheduled -Reviewed safety plan and crisis resources should he ever develop SI in the future Risk Factors Assessment Male: Yes : Yes Do You Have Access To A Gun?: No Health Problems: No Substance Use Disorders: No Previous Attempt: No Previous Psychiatric Hospitalization: No Hopelessness: No Protective Factors Assessment Employed: Yes Stable Relationships: Yes Supportive Family: Yes Good Rapport with Provider: Yes Interval History Identifying Information 21 yo man with history of depression admitted medically following overdose of bupropion. Psychiatry was consulted after he demonstrated symptoms concerning for delirium. Chief Complaint "I feel a lot better". Review of Systems Notes Reports stable sleep and appetite. Subjective Subjective Patient was seen & assessed and interval progress reviewed. One episode of confusion last night but called his girlfriend and felt better after that. Recalls having visual hallucinations on night of admission and morning after. Today is fully oriented, reports he slept well and thoughts are clear. He describes lower mood following the of his grandmother unexpectedly and suddenly in February followed by shoulder injury this fall which then impacted his social and academic goals. He had started on Wellbutrin through [facility] and was seeing a therapist and feeling better until Sep 16 when he got news that his great aunt . This brought back grief from his grandma's as well and made the holidays more difficult. Over the last two weeks he's felt more depressed and also experiences social anxiety at baseline. On the night of his ingestion he had been drinking alcohol which he notes has been an unhealthy coping mechanism for him when he feels sad. After this experience he states he doesn't plan to drink alcohol anymore and denies any cravings to use. But when the alcohol didn't help with his mood he looked up that Wellbutrin can cause "a different effect" stating "I know what it feels like to be drunk and I wanted a different effect". He clarifies that he crushed and snorted only two tabs of 300mg Wellbutrin and then swallowed the remaining 15-20 pills over a few hours but taking two and then waiting 30minutes to see if they would have any effect on his mood. He adamantly denies that this was a suicide attempt or that he was feeling ambivalent about being alive. Rather he continues to deny SI, can state many reasons for living, can safety plan and continues to feel that the alcohol lead him to make choices and decisions he wouldn't normally make. He remains future-oriented and is looking forward to the semester and feels well supported by his family. Discussed that Wellbutrin should be discontinued for now and that reconsideration for starting it or an SSRI can be discussed with his provider at [facility]. He does not feel that he needs additional inpatient psychiatric treatment to help with his mood symptoms of grief and anxiety. Physical Exam Psychiatric Orientation: alert and oriented x 3 Apperance: appropriately dressed and appropriately groomed Eye Contact: good eye contact Motor Behavior: steady gait and station and no abnormal motor movements Speech: normal rate/rhythm/volume of speech Affect: + constricted affect and mood congruent with affect Mood: + anxious mood Thought Process: goal directed thought process Thought Content: reality based without delusions Suicidal Thoughts: denies suicidal intent Homicidal Thoughts: denies homicidal thoughts Hallucinations: no auditory hallucinations and no visual hallucinations Cognition: recent memory grossly intact, remote memory grossly intact, attention grossly intact and language grossly intact Estimated Intelligence: consistent with education level Insight: + fair insight Judgement: + fair judgement Vital Signs (Past 24 Hours) Last Vital Signs Temp 36.3 C L 10/05/21 08:46 Pulse 115 H 10/05/21 08:46 Resp 18 10/05/21 08:46 BP 145/78 H 10/05/21 08:46 Pulse Ox 97 10/05/21 08:46 Results & Data ([facility]) Laboratory Results Laboratory Results - last 24 hr 10/04/21 10/04/21 10/05/21 10:52 15:21 08:39 WBC 5.09 RBC 4.30 L Hgb 13.3 L Hct 38.2 L MCV 88.8 MCH 30.9 MCHC 34.8 RDW Std Deviation 39.7 RDW Coeff of Truong 12.3 Plt Count 168 MPV 10.3 Immature Gran % (Auto) 0.0 Neut % (Auto) 67.6 Lymph % (Auto) 20.0 [place] % (Auto) 9.8 Eos % (Auto) 2.2 Baso % (Auto) 0.4 Neut # (Auto) 3.44 Lymph # (Auto) 1.02 L [place] # (Auto) 0.50 Eos # (Auto) 0.11 Baso # (Auto) 0.02 Immature Gran # (Auto) 0.00 Sodium Potassium 3.5 Chloride Carbon Dioxide Anion Gap BUN Creatinine Est Cr Clr Drug Dosing Est GFR ( Amer) Est GFR (Non-Af Amer) BUN/Creatinine Ratio Glucose Calcium Magnesium 2.5 H Troponin I < 0.015 10/05/21 08:39 WBC RBC Hgb Hct MCV MCH MCHC RDW Std Deviation RDW Coeff of Truong Plt Count MPV Immature Gran % (Auto) Neut % (Auto) Lymph % (Auto) [place] % (Auto) Eos % (Auto) Baso % (Auto) Neut # (Auto) Lymph # (Auto) [place] # (Auto) Eos # (Auto) Baso # (Auto) Immature Gran # (Auto) Sodium 140 Potassium 4.0 Chloride 110 H Carbon Dioxide 27 Anion Gap 4.0 BUN 4 L Creatinine 0.97 Est Cr Clr Drug Dosing 121.0 Est GFR ( Amer) 128.8 Est GFR (Non-Af Amer) 111.1 BUN/Creatinine Ratio 4.5 L Glucose 120 H Calcium 9.0 Magnesium 2.1 Troponin I Current Inpatient Medications Current Inpatient Medications: Current Inpatient Medications Acetaminophen (Acetaminophen 325 Mg Tab) 650 mg PO Q4H PRN PRN Reason: Pain or Fever Stop: 11/03/21 01:20 Enoxaparin Sodium (Enoxaparin Inj 40 Mg/0.4 Ml Syr) 40 mg SQ Q24H [facility] Stop: 11/03/21 08:59 Last Admin: 10/04/21 08:55 Dose: 40 mg Documented by: Folic Acid (Folic Acid 1 Mg Tab) 1 mg PO QAM [facility] Stop: 11/03/21 01:20 Last Admin: 10/04/21 12:57 Dose: Not Given Documented by: Lorazepam (Ativan) 1 mg in 2 mls @ 2 mls/min IV UD PRN; Protocol PRN Reason: EtOH Withdrawl AWSS Score 6,7 Stop: 11/03/21 01:20 Last Admin: 10/04/21 04:14 Dose: 2 mls/min Documented by: Lorazepam (Ativan) 2 mg in 4 mls @ 4 mls/min IV UD PRN; Protocol PRN Reason: EtOH Withdrawl AWSS Score 8,9 Stop: 11/03/21 01:20 Last Admin: 10/04/21 01:54 Dose: 4 mls/min Documented by: Lorazepam (Ativan) 3 mg in 6 mls @ 4 mls/min IV ONCE PRN; Protocol PRN Reason: EtOH Withdrawl AWSS Score >=10 Stop: 11/03/21 01:20 Magnesium Oxide (Magnesium Oxide 400 Mg Tab) 400 mg PO [facility] Stop: 11/03/21 08:59 Last Admin: 10/04/21 12:58 Dose: Not Given Documented by: Polyethylene Glycol (Polyethylene (Miralax) 17 Gm Pack) 17 gm PO DAILY PRN PRN Reason: Constipation Stop: 11/03/21 01:20 Thiamine HCl (Thiamine Hcl 100 Mg Tab) 100 mg PO QAM [facility] Stop: 11/03/21 01:20 Last Admin: 10/04/21 12:59 Dose: Not Given Documented by: (1) Bupropion overdose Encounter type: initial encounter Injury intent: undetermined intent Qualified Code(s): T43.294A - Poisoning by other antidepressants, undetermined, initial encounter (2) Depression Active/Remission status: currently active Depression Type: major depressive disorder Major depression episode severity: severe Major depression recurrence: recurrent Psychotic features: without psychotic features Qualified Code(s): F33.2 - Major depressive disorder, recurrent severe without psychotic features (3) Anticholinergic drug overdose Encounter type: initial encounter Injury intent: undetermined intent Qualified Code(s): T44.3X4A - Poisoning by other parasympatholytics [anticholinergics and antimuscarinics] and spasmolytics, undetermined, initial encounter
--- NOTE | 2021-10-05 10:34 | Discharge Summary ---
Date of Service October 05, 2021 Admission HPI Per Admitting Provider 21yo Male here with bupropion overdose via crushed and snorting pills. PMH Depression. Patient states he had a difficult session with his therapist, drank 40oz 9% beer, took 300mg Bupropion orally, did not feet better. Patient states he got the idea from watching 'Breaking Bad', was feeling depressed wanted to feel better, found he could snort bupropion online, crushed and snorted 2 pills at a time until he reached 15-20 pills total over 2.5hrs,states it did improve his mood. He then began feeling tachycardic, weakness, twitching, his girlfriend found him and brought him to the hospital. Patient received IVF, 1mg Magnesium, 2mf Ativan in ER, began hallucinating animals and shapes, is aware he is hallucinating. Patient insists he was not suicidal, only wanted to feel better, states he is currently embarrassed to be in the hospital. States this is the first time he has tried to abuse drugs. Patient's girlfriend gave most of history. Patient has had a difficult year, grandmother February, he damaged his shoulder and couldn't participate in [employer], college started in person classes difficult, his great aunt august. He has been attending therapy regularly, started on wellbutrin states it did work at first, takes his medication regularly. He has limited social support, has social anxiety has not met with [employer] friends has not made new friends in college, lives 2+hr away from old friends, has a girlfriend and a cat. Patient denies smoking, drinks once every other week 3-4 drinks per session, denies illicit substance use. He complains of left sided chest pressure. He has difficulty sitting upright, needs to use the bed rail, states he feels weak. Diaphoretic. Admission Exam Per Admitting Provider Constitutional: well developed, well nourished, cooperative and comfortable Eyes: PERRL, conjunctivae normal, anicteric sclerae pupils 3-4mm diameter ENMT: Throat: uvula midline Neck: trachea midline, no thyromegaly Respiratory: normal respiratory effort, lungs clear to auscultation Cardiovascular: Rate/Rhythm: regular rhythm and + tachycardic Heart Sounds: normal S1 and normal S2; no abnormal opening sounds, no click and no gallop Extremities: no calf tenderness and no edema Chest (Breasts): Chest: normal inspection of chest Gastrointestinal (Abdomen): normal bowel sounds, soft, nontender, no hepatosplenomegaly Musculoskeletal: no cyanosis or clubbing, extremities motor strength 5/5 Skin: no rashes, warm and dry Neurologic: normal touch/pain/proprioception, CN's II-XI intact bilaterally, moves all extremities and awake Principal Diagnosis Wellbutrin overdose Discharge Exam GENERAL: A&Ox3. NAD. HEENT: PERRL, EOMI. Moist mucous membranes. NECK: No JVD. No lymphadenopathy. CHEST/LUNGS: CTAB A/P. No crackles, wheezes, rales, rhonchi. HEART: Tachycardic, regular rhythm. No m/g/r. ABDOMEN: NT/ND, soft. BS+ x4. EXTREMITIES: No cyanosis, no clubbing, no edema SKIN: Warm and dry. No rashes or lesions. PSYCHIATRIC: Euthymic affect, no SI, no pressured speech, no hallucinations NEUROLOGIC: No FND. CN II-XII grossly intact. Discharge Data Allergies Allergy/AdvReac Type Severity Reaction Status Date / Time No Known Allergies Allergy Verified 10/03/21 21:24 Consultations 10/03/21 21:42 ED Decision to Admit Stat 10/04/21 06:11 Consult Psychiatry Routine Hospital Course (1) Bupropion overdose: 21yo Male here with bupropion overdose via crushed and snorting pills. PMH Depression. Bupropion Overdose -Patient snorted 15-20 pills bupropion, developed body twitching, weakness/coordination issues -UDS + amphetamine/MDMA likely due to bupropion, + for alcohol -Contacted poison control, recommend IVF, magnesium, and Ativan -Initial EKG with sinus tachy, ST depressions, prolonged QTc -- serial EKGs monitored for QTc and rate -Troponin neg x3 -Had tachycardia secondary to OD -- given various doses of IV Cardizem for rate control; slowly downtrended to normal -Placed on seizure precautions -Received several doses of Ativan according to AWSS protocol, which ultimately helped avoid Wellbutrin-related seizures - Several IV magnesium doses given - MagOx 400mg PO ordered for when patient is able to tolerate PO - Psych consulted: -Safe for discharge from a psychiatric standpoint, he is now felt to have decision making capacity to leave AMA -Discontinue bupropion -Aurelio can discuss potential medication options for mood with his provider at [facility] after discharge, discussed briefly options including restarting bupropion vs SSRI trial -he has therapy follow-up scheduled -Reviewed safety plan and crisis resources should he ever develop SI in the future - As above recommend PCP f/u for discussion of psych treatment Alcohol Intoxication -Patient drinks once every other week, 3-4 drinks per time -Drank 40oz beer before admit, alcohol level 111.3 -AWSS protocol as above Tachycardia -Secondary to above -Received several Cardizem doses -Resolved at time of DC with EKGs in NSR and QTc no longer prolonged Hypokalemia -Potassium 3.2 on admission -Given several K riders for repletion - Normalized on DC Depression -Hold bupropion for now given his acute intoxication -Psych consult placed see recs above Dispo: DC home with PCP f/u (2) Depression: (3) Alcohol intoxication: Total Time Total Time Spent Total Time Spent (In Minutes): see attending attestation Discharge Plan Discharge Items Patient Disposition: Home - Self-Care Reason For Visit: OVERDOSE Discharge Diagnosis: Wellbutrin overdose Activity: Per Instructions section Non-emergency contact: Primary Care Provider Call non-emergency contact if: you have any medication questions and your symptoms worsen Follow-up/Referrals: [place] [Primary Care Provider] - Diet: Regular Addtl Attending Provider Instructions: You were admitted to [facility] due to a Wellbutrin overdose. You were monitored closely for any signs/symptoms of impending seizures or cardiac side effects from the medication. Fortunately, seizures were able to be avoided with periodic doses of Ativan. You did have significant tachycardia (fast heart rate), which is a common side effect when high doses of Wellbutrin are ingested. Your EKGs showed some signs of possible heart ischemia, however your troponin (a marker for cardiac damage) levels were consistently negative. As you are mental status improved, you were evaluated by our psychiatry team who recommended that you discontinue Wellbutrin at this time and follow-up with your usual provider at [facility] for discussion of medication options. It is possible that your provider may want to restart you on Wellbutrin or offer a different type of medication. It is recommended that you take your medications only as prescribed -- do not take any more or any less than recommended by your physician, as medications for depression can have significant and dangerous side effects if taken inappropriately. Please return to the hospital if you have any serious symptoms such as seizures, chest pain, palpitations, shortness of breath, or any sever/concerning symptoms for you. Pending Studies at Discharge: No Stand-Alone Forms: My [facility], Smoking Cessation Medications and DC Order Prescriptions: Discontinued bupropion HCl 150 mg Tablet Sustained-Release 12 Hr 150 mg PO .OD RF: 0 bupropion HCl 300 mg Tablet Extended Release 24 Hr 300 mg PO QAM RF: 0 Discharge Orders: Discharge Order (Routine); Ordered 10/05/21 Ordered By: Marky Ochoa Admission Data Admit Date/Time: 10/03/21 23:02 Attending Provider: Tirso Delgado Admit Provider: Bri Ely Primary Care Provider: [facility] Other Providers: Eduardo Roberts ; Louise Hunt ; Andria Singh ; Lynda Bolanos ; Senthil Stanford Other Interventions: Discharge Summary Assessment (RN) Last Done: 10/05/21 12:31 Supervising Physician Co-Signing Physician Notes Patient seen and examined, chart reviewed, case discussed with Dr. Marii Cabral and I agree with the assessment and plan as above except as otherwise noted All labs and images reviewed Bupropion Overdose - Collateral collected from pts mother and girlfriend, pt unable to give meaningful history. Mumbles/arouses transiently without offering conversation. - Pt hallucinated initially, required pharmacologic and physical restrains - On admit and by history pt denied SI, crushed wellbutrin in an attempt to get high. Patient does not have decision-making capacity at this time. - ~20tabs snorted, 100mg ST dose (Total dose ~2g) [Seizure risk rapidly increased >3g, Cardiotox at >10g] - Delirium in ER requiring pharmacologic and physical restraint - EKG: QT454 (decrease from prior QTc 551). Sinus tachycardia. ?borderline lateral ischemia with tachycardia, trops negative x2, continue to trend EKG Q6H per poison control. - No hypotension at AM assessment - On AWSS for concurrent alcohol use - Monitored as he had increased risk for seizure. - No cardiotoxicity requiring pressor support at this time, continue to follow tachycardia. - Half life ~1 day (21 hours). Continues to require ongoing monitoring - As patient improved his cognition, patient was discharged. Resident Activity Tracking Resident Involvement: Resident Care Provided Care Provided: Adult [facility]
--- NOTE | 2021-10-05 17:37 | Electrocardiogram Report ---
Test Reason : Blood Pressure : / mmHG Vent. Rate : 138 BPM Atrial Rate : 138 BPM P-R Int : 128 ms QRS Dur : 102 ms QT Int : 300 ms P-R-T Axes : 078 086 073 degrees QTc Int : 454 ms Sinus tachycardia Abnormal ECG When compared with ECG of 03-OCT-2021 20:20, Incomplete right bundle branch block is no longer Present Criteria for Septal infarct are no longer Present Confirmed by Omar Hines ([id number]) on 10/05/2021 5:36:32 PM Referred By: REFERRED SELF Confirmed By:Omar Hines
--- NOTE | 2021-10-05 21:47 | Electrocardiogram Report ---
Test Reason : Blood Pressure : / mmHG Vent. Rate : 120 BPM Atrial Rate : 120 BPM P-R Int : 158 ms QRS Dur : 108 ms QT Int : 342 ms P-R-T Axes : 084 093 084 degrees QTc Int : 483 ms Sinus tachycardia Rightward axis Abnormal ECG When compared with ECG of 04-OCT-2021 02:32, No significant change was found Confirmed by Omar Hines ([id number]) on 10/05/2021 9:46:58 PM Referred By: REFERRED SELF Confirmed By:Omar Hines
--- NOTE | 2021-10-06 05:35 | Electrocardiogram Report ---
Test Reason : Blood Pressure : / mmHG Vent. Rate : 108 BPM Atrial Rate : 108 BPM P-R Int : 140 ms QRS Dur : 110 ms QT Int : 362 ms P-R-T Axes : 068 077 038 degrees QTc Int : 485 ms Sinus tachycardia Incomplete right bundle branch block Abnormal ECG When compared with ECG of 04-OCT-2021 09:06, Incomplete right bundle branch block is now Present Confirmed by Omar Hines ([id number]) on 10/06/2021 5:34:44 AM Referred By: REFERRED SELF Confirmed By:Omar Hines
--- NOTE | 2021-10-06 05:51 | Electrocardiogram Report ---
Test Reason : Blood Pressure : / mmHG Vent. Rate : 095 BPM Atrial Rate : 095 BPM P-R Int : 132 ms QRS Dur : 110 ms QT Int : 364 ms P-R-T Axes : 075 083 062 degrees QTc Int : 457 ms Normal sinus rhythm Incomplete right bundle branch block Nonspecific T wave abnormality Abnormal ECG When compared with ECG of 04-OCT-2021 15:27, ST no longer depressed in Anterior leads Confirmed by Omar Hines ([id number]) on 10/06/2021 5:51:03 AM Referred By: REFERRED SELF Confirmed By:Omar Hines
--- NOTE | 2021-10-06 06:02 | Electrocardiogram Report ---
Test Reason : Blood Pressure : / mmHG Vent. Rate : 093 BPM Atrial Rate : 093 BPM P-R Int : 140 ms QRS Dur : 108 ms QT Int : 362 ms P-R-T Axes : 070 084 011 degrees QTc Int : 450 ms Normal sinus rhythm with sinus arrhythmia Nonspecific ST and T wave abnormality Abnormal ECG When compared with ECG of 04-OCT-2021 21:14, Inverted T waves have replaced nonspecific T wave abnormality in Inferior leads Confirmed by Omar Hines ([id number]) on 10/06/2021 6:01:49 AM Referred By: REFERRED SELF Confirmed By:Omar Hines
--- NOTE | 2021-10-08 22:28 | Billing Data ---
Date of Service October 05, 2021 Coding Level of Care Code D/C DAY MANAGEMENT >30 MINS Time Spent (min) 32
[2021-10-09 08:02] LABS: Amphetamine Urine, Confirm NEGATIVE ng/mL (<250); MDA negative; MDEA negative; MDMA (Ecstasy) Urine, Confirm negative; Methamphetamine, Ur Confirm NEGATIVE ng/mL (<250)
== END 2021-10-05 12:54 | disposition home or self-care (01) | DRG 917 ==
LOC: ED 19:55 → SUATTDRO 23:02 → EDINP 23:02 → 2S 10-04 01:29